=== PATIENT | female | born 2000 | race Two or more races ===

== ENCOUNTER 2023-12-14 10:23 | Emergency (ER) | payer OTHER ==
[~2023-12-14] VITALS: Ht 152.4 cm; Wt 56.5 kg
[2023-12-14 10:50] VITALS: BP 118/66; PULSE 102; RESP 12; TEMP 98; O2SAT 99
[2023-12-14 11:46] LABS: Urine Bacteria None Seen /hpf (None Seen)
[2023-12-14 12:15] LABS: Urine Blood TRACE /uL (Negative); Urine Clarity Clear (Clear); Urine Color Light-Yellow (Yellow); Urine Protein, UAD Negative (Negative); Urine Specific Gravity 1.012 (1.001-1.035); Urine Urobilinogen Normal (Negative); Urine WBC 3 /hpf (0 - 5)
[2023-12-14 12:57] LABS: Vaginal Bacteria Moderate; Vaginal Epithelial Cells Many
[2023-12-14 12:58] LABS: Vaginal Clue Cells None Seen; Vaginal Trichomonas Not Present
[2023-12-14] MEDS ORDERED: NITR-87 PO (13:03)
[2023-12-14] MEDS ORDERED: MET075VC VG (13:03)
== END 2023-12-14 13:04 | disposition home or self-care (01) ==
LOC: ER 10:23
DX: N76.0 Acute vaginitis (principal); N30.90 Cystitis, unspecified without hematuria; Z32.02 Encounter for pregnancy test, result negative
CPT/HCPCS: 81001; 81025; 87210

== ENCOUNTER 2023-12-22 09:12 | Emergency (ER) | payer OTHER ==
[~2023-12-22] VITALS: Ht 152.4 cm; Wt 56.1 kg
[~2023-12-22 09:12] MED LIST: MET075VC VG; NITR-87 PO
[2023-12-22 10:58] LABS: Urine Bacteria FEW /hpf (None Seen); Urine Blood 1+ /uL (Negative); Urine Clarity Clear (Clear); Urine Color Yellow (Yellow); Urine Mucus FEW (None Seen); Urine Protein, UAD TRACE (Negative); Urine Specific Gravity 1.024 (1.001-1.035); Urine Urobilinogen Normal (Negative); Urine WBC 4 /hpf (0 - 5); Urine pH 5.5 (5.0-9.0)
[2023-12-22 11:49] LABS: Vaginal Trichomonas Not Present
[2023-12-22 11:50] LABS: Vaginal Bacteria Many; Vaginal Clue Cells Few; Vaginal Epithelial Cells Moderate
[2023-12-22] MEDS ORDERED: MET500T PO (12:14)
[2023-12-22] MEDS ORDERED: BACDST PO (12:14)
[2023-12-22 12:48] VITALS: BP 111/83; PULSE 87; RESP 20; TEMP 98.6; O2SAT 99
== END 2023-12-22 12:48 | disposition home or self-care (01) ==
LOC: ER 09:12
DX: N76.0 Acute vaginitis (principal); B96.89 Other specified bacterial agents as the cause of diseases classified elsewhere; N30.90 Cystitis, unspecified without hematuria
CPT/HCPCS: 81001; 87210

== ENCOUNTER 2024-08-22 17:08 | Emergency (ER) | payer OTHER ==
[~2024-08-22] VITALS: Ht 160 cm; Wt 58.0 kg
[~2024-08-22 17:08] MED LIST changes: +BACDST PO; +MET500T PO
[2024-08-22] MEDS: methylPREDNISolone SOD SUCC 125 MG/2 ML VL IM ONE (18:25)
[2024-08-22] MEDS: KETOROLAC TROMETH 30 MG/ML 1ML VIAL IM ONE (18:26)
--- NOTE | 2024-08-22 18:38 | ECG ---
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
[2024-08-22] MEDS ORDERED: BACL10TA PO (20:50)
[2024-08-22] MEDS ORDERED: IBUP-1454 PO (20:50)
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
[2024-08-22 21:21] VITALS: BP 127/81; TEMP 97.7
[2024-08-22 21:22] VITALS: PULSE 97; RESP 19; O2SAT 97
== END 2024-08-22 21:24 | disposition home or self-care (01) ==
LOC: EDBD 17:08 → ER 17:08
DX: S20.219A Contusion of unspecified front wall of thorax, initial encounter (principal); S50.812A Abrasion of left forearm, initial encounter; S50.811A Abrasion of right forearm, initial encounter; V43.52XA Car driver injured in collision with other type car in traffic accident, initial encounter; Y93.I9 Activity, other involving external motion; Y92.488 Other paved roadways as the place of occurrence of the external cause; Y99.8 Other external cause status
CPT/HCPCS: 71045; 93005; 96372; 99284; J1885; J2919